=== PATIENT | male | born 1960 | race Caucasian/White ===

== ENCOUNTER 2021-12-21 16:48 | Emergency (ER) | payer MEDICARE ==
[~2021-12-21] VITALS: Ht 172.7 cm; Wt 72.7 kg
[~2021-12-21 16:48] MED LIST: ASPI81TA52 PO; ATOR40TA PO; DONE-46 PO; ESCI5TAB PO; LAMO100T2 PO; LORA-269 PO; MECL-159 PO; SYN0.088T PO
[2021-12-21 18:38] LABS: BASOPHILS % (AUTO) 0.5 % (0-1); EOSINOPHILS # (AUTO) 0.3 X10'3 (0-0.9); EOSINOPHILS % (AUTO) 4.1 % (0-6); HEMOGLOBIN 14.9 g/dl (14.0-17.9); LYMPHOCYTES # (AUTO) 2.8 X10'3 (1.1-4.8); LYMPHOCYTES % (AUTO) 34.8 % (21-51); MEAN CORPUSCULAR HGB CONC 33.9 g/dL (33.0-36.5); MEAN CORPUSCULAR VOLUME 88.6 FL (78-98); MEAN PLATELET VOLUME 8.1 FL (7.4-10.4); MONOCYTES # (AUTO) 0.6 X10'3 (0-0.9); MONOCYTES % (AUTO) 7.1 % (2-12); NEUTROPHILS # (AUTO) 4.3 X10'3 (1.8-7.7); NEUTROPHILS % (AUTO) 53.5 % (42-75); PLATELET COUNT 347 X10'3 (140-440); RED BLOOD COUNT 4.96 X10'6 (4.70-6.10); RED CELL DISTRIBUTION WIDTH 13.8 % (11.5-14.5)
[2021-12-21 18:49] LABS: ALANINE AMINOTRANSFERASE 42 U/L (12-78); ALBUMIN 3.6 G/DL (3.4-5.0); ALKALINE PHOSPHATASE 126 IU/L (46-116); ANION GAP 11 (8-16); ASPARTATE AMINO TRANSFERASE 32 U/L (10-37); BILIRUBIN,TOTAL 0.2 MG/DL (0.1-1.0); BLOOD UREA NITROGEN 19 MG/DL (7-18); BUN/CREATININE RATIO 17.4 (5.4-32.0); CALCIUM 8.6 MG/DL (8.5-10.1); CHLORIDE 104 MMOL/L (99-107); CREATININE 1.09 MG/DL (0.60-1.10); GLUCOSE 121 MG/DL (70-104); POTASSIUM 3.8 MMOL/L (3.5-5.1); SODIUM 142 MMOL/L (135-145); TOTAL CARBON DIOXIDE 27.4 MMOL/L (24-32); TOTAL PROTEIN 7.2 G/DL (6.4-8.2); eGFR 68 ML/MIN
--- NOTE | 2021-12-21 19:51 | NUR ---
Report called to [facility], in overflow. Patient being transfered via wheelchair by tech.
[2021-12-21] MEDS ORDERED: meclizine 12.5mg tablet PO PRN (20:40)
--- NOTE | 2021-12-21 20:43 | NUR ---
Patient arrived on the unit in wheelchair in no obvious distress. No physical complaint made. breathing spontanously on room air. Patient states that he is having suicidal ideation with no specific plan at this time.
[2021-12-21] MEDS: donepezil 5mg tablet PO SCH (21:14)
[2021-12-21] MEDS: atorvastatin 20mg tablet PO SCH (21:17)
--- NOTE | 2021-12-21 21:20 | NUR ---
Moriah donaldson in [facility] - 12/21/21 at 2125 by KEITH Patient pacing and agiated hence patient given zyprexia 10 mg PO
--- NOTE | 2021-12-22 01:50 | NUR ---
Patient asleep but easily arouse. No obvious distress noted. Observation ongoing
--- NOTE | 2021-12-22 05:16 | NUR ---
patient asleep but easily arouse. No obvious distress noted. Observation ongoing.
--- NOTE | 2021-12-22 07:00 | NUR ---
Patient resting comfortably, blankets pulled over his head. Visible respirations even and unlabored.
--- NOTE | 2021-12-22 07:32 | NUR ---
Pt was stirring, appeals writer asked if he wet "nope." Asked if he would pull covers from his face "nope." Will continue to monitor.
[2021-12-22] MEDS ORDERED: levoTHYROXINE 88mcg tablet PO SCH (08:00)
[2021-12-22] MEDS ORDERED: LORazepam 0.5 MG tablet PO PRN (08:00)
[2021-12-22] MEDS ORDERED: lamoTRIgine 100mg tablet PO SCH (08:00)
[2021-12-22] MEDS ORDERED: ESCITALOPRAM OXALATE 5 MG TABLET PO SCH (08:00)
[2021-12-22] MEDS ORDERED: aspirin 81mg, enteric-coated 1 TAB TABLET.DR PO SCH (08:00)
--- NOTE | 2021-12-22 08:40 | NUR ---
Pt ambulated to bathroom with FWW, card writer hand at side. Pt has an unsteady gait, overestimates his strides. Pt unable to leave a urine sample at this time.
--- NOTE | 2021-12-22 08:46 | NUR ---
One on one asssessment with patient completed at bedside. Pt presents slightly confused. Pt is difficult to understand, he has no teeth and mumbles his words. Pt states he dosn't know where he is or the current president. When asked about suicidal thoughts pt states "Not anymore." Pt laughed and said "no" when asked why he had his gait belt around his neck. Pt denies A/VH. Pt has some thought blocking, says "nope" to most questions. Pt is compliant with medication and care. Pt has dysphaia and per notes from living facility ([facility]), pt is on a pureed diet.
--- NOTE | 2021-12-22 09:29 | NUR ---
Pt sitting on side of bed finishing breakfast. Pt requested sugar for his coffee. Pt remains calm/cooperative. Pt more alert, able to tell me he is at the hospital. Pt states he has only been at current living facility "for a short time."
--- NOTE | 2021-12-22 10:43 | NUR ---
Attempted to obtain urine sample. Pt is incontinent and states he doesn't know when he has to void. Mental health evaluation pending r/t to urine sample. Pt depends and clothing changed.
--- NOTE | 2021-12-22 12:05 | NUR ---
Woke patient for lunch, was able to obtain urine sample.
--- NOTE | 2021-12-22 12:06 | NUR ---
Urine sample sent to lab.
[2021-12-22 12:31] LABS: CLARITY,URINE CLEAR (Clear); COLOR,URINE YELLOW (Yellow); GLUCOSE, URINE NEGATIVE (Neg); KETONES,URINE NEGATIVE (Neg); LEUKOCYTE ESTERASE ,URINE NEGATIVE (Neg); NITRITES, URINE NEGATIVE (Neg); OCCULT BLOOD,URINE NEGATIVE (Neg); PROTEIN,URINE NEGATIVE (Neg); UROBILINOGEN,URINE 0.2 E.U/dL (0.2-1.0)
[2021-12-22 12:36] LABS: UA COLLECTION TYPE VOIDED
[2021-12-22 12:51] LABS: URINE AMPHETAMINE SCREEN NEGATIVE (Neg); URINE BARBITUATE SCREEN NEGATIVE (Neg); URINE BENZODIAZEPINES SCREEN NEGATIVE (Neg); URINE CANNABINOID SCREEN NEGATIVE (Neg); URINE COCAINE SCREEN NEGATIVE (Neg); URINE METHADONE SCREEN NEGATIVE (Neg); URINE OPIATE SCREEN NEGATIVE (Neg); URINE PHENCYCLIDINE SCREEN NEGATIVE (Neg)
--- NOTE | 2021-12-22 13:05 | NUR ---
FAXED PACKET TO [facility].
--- NOTE | 2021-12-22 14:19 | NUR ---
Pt resting quietly, no signs/symptoms of distress.
--- NOTE | 2021-12-22 14:55 | NUR ---
REFAXED PACKET TWICE TO [facility] - STATES THEY HAVE NOT RECEIVED.
--- NOTE | 2021-12-22 15:55 | NUR ---
Patient trying to get out of bed "I need to walk." Noticed incontinence of urine, changed sheets, clothes and wiped patient down. Pt presents slightly disorganized. Pt asked where am I and when told stated "oh ya." Pt continues to deny suicidal thoughts.
--- NOTE | 2021-12-22 16:15 | NUR ---
Patient sitting up in chair calm/coopertive. Pt was asked if he wanted to lay back in bed and stated "nope."
--- NOTE | 2021-12-22 17:05 | NUR ---
Pt asked to go back to bed, when he stood up, noticed pants were wet. Pt was changed and cleaned up. Placed a taped-side diaper on pt instead of the pull-ups.Will continue to monitor. Skin is intact.
[2021-12-22 17:27] VITALS: BP 131/70
--- NOTE | 2021-12-22 20:30 | NUR ---
Pt ate 100% of dinner. Patient was not placed on a hold but instead got approval to be sent back to [facility] at 2100 by [facility].
[2021-12-22] MEDS: atorvastatin 20mg tablet PO SCH (20:36)
[2021-12-22] MEDS: donepezil 5mg tablet PO SCH (20:36)
== END 2021-12-22 22:12 ==
LOC: ER 16:49
DX: R45.851 Suicidal ideations (principal); Z20.822 Contact with and (suspected) exposure to COVID-19; I50.9 Heart failure, unspecified; E78.00 Pure hypercholesterolemia, unspecified; F31.9 Bipolar disorder, unspecified; F17.200 Nicotine dependence, unspecified, uncomplicated; Z72.89 Other problems related to lifestyle; Z79.82 Long term (current) use of aspirin; Z79.899 Other long term (current) drug therapy
CPT/HCPCS: 36415; 80053; 80305; 81003; 84443; 85025; 87635; 99285; C9803

== ENCOUNTER 2022-04-11 10:17 | Emergency (ER) | payer MEDICARE, MEDICAID ==
[~2022-04-11] VITALS: Ht 172.7 cm; Wt 118.2 kg
[2022-04-11 10:59] LABS: BASOPHILS % (AUTO) 0.3 % (0-1); EOSINOPHILS # (AUTO) 0.1 X10'3 (0-0.9); EOSINOPHILS % (AUTO) 0.9 % (0-6); HEMATOCRIT 42.3 % (42.0-52.0); HEMOGLOBIN 14.5 g/dl (14.0-17.9); LYMPHOCYTES # (AUTO) 1.7 X10'3 (1.1-4.8); LYMPHOCYTES % (AUTO) 19.3 % (21-51); MEAN CORPUSCULAR HEMOGLOBIN 29.8 PG (27.0-31.0); MEAN CORPUSCULAR HGB CONC 34.2 g/dL (33.0-36.5); MEAN PLATELET VOLUME 7.3 FL (7.4-10.4); MONOCYTES # (AUTO) 1.1 X10'3 (0-0.9); MONOCYTES % (AUTO) 11.9 % (2-12); NEUTROPHILS # (AUTO) 6.1 X10'3 (1.8-7.7); NEUTROPHILS % (AUTO) 67.6 % (42-75); PLATELET COUNT 394 X10'3 (140-440); RED BLOOD COUNT 4.86 X10'6 (4.70-6.10); RED CELL DISTRIBUTION WIDTH 14.1 % (11.5-14.5)
[2022-04-11 11:24] LABS: ALANINE AMINOTRANSFERASE 92 U/L (12-78); ALBUMIN 3.1 G/DL (3.4-5.0); ALBUMIN/GLOBULIN RATIO 0.7 (1.1-1.5); ALKALINE PHOSPHATASE 204 IU/L (46-116); ANION GAP 11 (8-16); ASPARTATE AMINO TRANSFERASE 35 U/L (10-37); BILIRUBIN,TOTAL 0.5 MG/DL (0.1-1.0); BLOOD UREA NITROGEN 21 MG/DL (7-18); BUN/CREATININE RATIO 16.3 (5.4-32.0); CALCIUM 8.9 MG/DL (8.5-10.1); CHLORIDE 102 MMOL/L (99-107); CREATININE 1.29 MG/DL (0.60-1.10); GLUCOSE 111 MG/DL (70-104); POTASSIUM 3.9 MMOL/L (3.5-5.1); SODIUM 136 MMOL/L (135-145); TOTAL CARBON DIOXIDE 22.6 MMOL/L (24-32); TOTAL PROTEIN 7.7 G/DL (6.4-8.2); eGFR 56 ML/MIN
--- NOTE | 2022-04-11 14:22 | NUR ---
[facility] called and informed pt is to be discharged. [facility] said to use [facility]. [facility] called and pt to be picked up at 5:15
[2022-04-11 18:30] VITALS: BP 115/69
== END 2022-04-11 18:57 ==
LOC: ER 10:17
DX: S00.81XA Abrasion of other part of head, initial encounter (principal); F03.90 Unspecified dementia, unspecified severity, without behavioral disturbance, psychotic disturbance, mood disturbance, and anxiety; I50.9 Heart failure, unspecified; E78.00 Pure hypercholesterolemia, unspecified; F31.9 Bipolar disorder, unspecified; Z79.82 Long term (current) use of aspirin; Z79.899 Other long term (current) drug therapy; W18.30XA Fall on same level, unspecified, initial encounter; Y93.01 Activity, walking, marching and hiking; Y92.89 Other specified places as the place of occurrence of the external cause; Y99.9 Unspecified external cause status
CPT/HCPCS: 36415; 70450; 71045; 80053; 85025; 93005; 99285